=== PATIENT | male | born 2000 | race Two or more races ===

== ENCOUNTER 2022-02-04 21:29 | Emergency (ER) | payer OTHER, SELFPAY ==
--- NOTE | ~2022-02-04 | XR_ITS ---
EXAMINATION: XR finger 3rd RT min 2V INDICATION: Right third finger pain and laceration TECHNIQUE: Three views of the right third finger are obtained. COMPARISON: None available FINDINGS: There is a soft tissue laceration in the lateral aspect of the finger adjacent to the third middle phalanx. No underlying osseous abnormality is identified. The joint spaces are normal. No rad iopaque foreign body is seen. IMPRESSION: 1. No acute osseous abnormality radiopaque foreign body identified. Reviewed, dictated and finalized at location A. [employer]
[2022-02-04 21:34] VITALS: BP 121/66; PULSE 75; RESP 18; TEMP 36.8; O2SAT 99
--- NOTE | 2022-02-04 23:50 | ED.WOUNDLAC ---
HPI - Wound/Laceration General Chief Complaint: Wound/Laceration Stated Complaint: laceration Time Seen by Provider: 02/04/22 22:53 Source: patient Mode of arrival: ambulatory Limitations: no limitations History of Present Illness HPI narrative: 21-year-old male presents today with complaints of laceration to the right third digit obtained when he grabbed a glass. Patient states he grabbed the glass and it broke in his hand. Resulting in a laceration to palmar aspect between the DIP and PIP of the third digit. Patient with full range of motion. Capillary refill less than 2 seconds. Patient is up-to-date on tetanus. Review of Systems Review of Systems: CONSTITUTIONAL: Denies fever, chills, or sweats. CARDIOVASCULAR: Denies chest pain, palpitations, or edema. RESPIRATORY: Denies cough or dyspnea. GASTROINTESTINAL: Denies abdominal pain, nausea, vomiting, or diarrhea. GENITOURINARY: Denies dysuria or hematuria. SKIN: Laceration to right third digit. Denies rash or itching. MUSCULOSKELETAL: Denies back pain, joint pain, or myalgia. NEUROLOGIC: Denies headache, numbness, dizziness, or weakness. PSYCHIATRIC: Denies anxiety or depression. Exam Narrative: GENERAL: Well-appearing, well-nourished, and in no acute distress. HEAD: Normocephalic, atraumatic. EYES: PERRLA and EOMI. CHEST: Clear to auscultation. No respiratory distress. No wheezes rales or rhonchi HEART: Regular rate and rhythm. No murmur heard. Normal peripheral pulses. EXTREMITIES: Normal range of motion. No edema. SKIN: Warm, dry, no rash. 3 cm laceration noted to the palmar aspect of the right third digit between the PIP and DIP. Patient with full range of motion. Capillary refill less than 2 seconds. Patient denies any numbness or tingling. Bleeding currently under control. Glass shard removed from wound. NEURO: No focal deficits. Alert and oriented x3. PSYCH: Normal mood and affect. Course Vital Signs Vital signs: Vital Signs Temperature 98.2 F 02/04/22 21:34 Pulse Rate 75 02/04/22 21:34 Respiratory Rate 18 02/04/22 21:34 Blood Pressure 121/66 02/04/22 21:34 Pulse Oximetry 99 02/04/22 21:34 Oxygen Delivery Room Air 02/04/22 21:34 Temperature 98.2 F 02/04/22 21:34 Pulse Rate 75 02/04/22 21:34 Respiratory Rate 18 02/04/22 21:34 Blood Pressure 121/66 02/04/22 21:34 Pulse Oximetry 99 02/04/22 21:34 Oxygen Delivery Room Air 02/04/22 21:34 Procedures Laceration Laceration 1: Date: 02/05/22 Time: 01:54 Site: hand (3rd digit oneill side) Side (If applicable): right Size (cm): 4 Description: linear Depth: simple, single layer Local Anesthetic: lidocaine 1% Amount of anesthesia used (mL): 3 Pre-repair: wound explored, irrigated extensively and minor debridement (on shard of glass removed. ) ====== Skin Level ====== Skin layer closed with: nylon Size (cm): 4-0 Number of sutures: 5 Technique: simple, interrupted ====== Subcutaneous Layer ====== ====== Muscle Layer ====== ====== Tendon Layer ====== Dressing: non adherant with splint MDM - Wound/Laceration MDM Narrative Medical decision making narrative: 21-year-old male HPI as noted. Laceration to right third digit palmar aspect between DIP and PIP. Patient with full range of motion. Bleeding was controlled upon assessment. Laceration repaired without difficulty. Patient to be discharged home plan follow-up and removal of sutures in 10 to 14 days. Differential Diagnosis Differential diagnosis: Likely laceration Discharge Plan Discharge Clinical Impression: Laceration Patient Disposition: Home, Self-Care Condition: Improved Instructions: Antibiotic Form, Care For Your Stitches (ED), Laceration (ED) Additional Instructions: Please follow-up with primary care physician in 10 to 14 days for suture removals. Monitor for signs
== END 2022-02-05 02:20 | disposition home or self-care (01) ==
PROVIDERS: Emergency Provider Nurse Practitioner Family
DX: S61.212A Laceration without foreign body of right middle finger without damage to nail, initial encounter (principal); W25.XXXA Contact with sharp glass, initial encounter
CPT/HCPCS: 12002; 73140; 99283